=== PATIENT | female | born 1945 | race African-American/Black ===

== ENCOUNTER 2017-04-19 20:59 | Emergency (ER) | payer MEDICARE ==
[2017-04-19 21:47] LABS: BASOPHILS 0.3 % (0-2); EOSINOPHILS 4.2 % (0-7); HEMATOCRIT 40.1 % (36.0-48.0); HEMOGLOBIN 13.7 g/dL (12-16); IMMATURE GRANULOCYTES 0.2 % (0-5); LYMPHOCYTES 32.5 % (15-50); MCH 31.9 pg (26.0-34.0); MCHC 34.2 g/dL (31.0-37.0); MCV 93.5 fL (80.0-100.0); MONOCYTES 7.4 % (2-11); NEUTROPHILS 55.4 % (40-80); PLATELET COUNT 193 10x3/uL (130-400); RBC 4.29 10x6/uL (4.00-5.40); RDW 14.7 % (11.5-14.5); WBC 5.9 10x3/uL (4.8-10.8)
[2017-04-19 22:19] LABS: ALBUMIN 3.4 g/dL (3.4-5.0); ALKALINE PHOSPHATASE 48 U/L (46-116); ALT (SGPT) 23 U/L (10-68); BILIRUBIN - TOTAL 0.26 mg/dL (0.2-1.3); CALC OSMOLALITY 286 mosm/kg (275-300); CALCIUM 8.7 mg/dL (8.5-10.1); CHLORIDE - SERUM 105 mmol/L (98-107); CREATININE - SERUM 1.6 mg/dL (0.6-1.3); GLUCOSE 100 mg/dL (74-106); POTASSIUM - SERUM 3.6 mmol/L (3.5-5.1); PROTEIN - SERUM 7.1 g/dL (6.4-8.2); SODIUM 142 mmol/L (136-145); UREA NITROGEN 23 mg/dL (7-18); eGFR NON AFRICAN AMERICAN 33 mL/min (90-120)
[2017-04-19 22:27] LABS: CHOL - HDL RATIO 3.6 ratio (2.3-4.1); CHOLESTEROL, TOTAL 228 mg/dL (0-200); CKMB 0.3 U/L (0.0-3.6); CREATINE KINASE 110 UL (21-215); HDL CHOLESTEROL 63 mg/dL (32-96); LDL CHOLESTEROL 106 mg/dL (0-100); LDL-HDL RATIO 1.7 ratio (1.5-3.5); TRIGLYCERIDE 299 mg/dL (30-200)
[2017-04-19 22:35] LABS: TROPONIN-I < 0.017 ng/mL (0.000-0.060)
== END 2017-04-20 02:03 | disposition home or self-care (01) ==
LOC: D.ER 20:59
PROVIDERS: Emergency Medicine
DX: R07.9 Chest pain, unspecified (principal); R00.1 Bradycardia, unspecified; I10 Essential (primary) hypertension

== ENCOUNTER 2018-02-17 12:15 | Emergency (ER) | payer OTHER ==
[~2018-02-17] VITALS: Ht 165.1 cm; Wt 65.9 kg
[2018-02-17 12:17] VITALS: Ht 165.1 cm; Wt 65.9 kg
[2018-02-17] MEDS ORDERED: NORVASC5 MG PO (12:20)
[2018-02-17] MEDS ORDERED: HYZAAR 100-12.51 TAB PO (12:22)
[2018-02-17 13:24] LABS: APPEARANCE HAZY (CLEAR); BILIRUBIN NEGATIVE (NEGATIVE); COLOR YELLOW (YELLOW); GLUCOSE NEGATIVE (NEGATIVE); KETONE NEGATIVE (NEGATIVE); NITRITE POSITIVE (NEGATIVE); PROTEIN NEGATIVE (NEGATIVE); SPECIFIC GRAVITY 1.005 (1.005-1.020); UROBILINOGEN NORMAL (NORMAL)
[2018-02-17 13:26] LABS: BACTERIA MANY /hpf (NONE SEEN); RED CELLS - URINE 0-5 /hpf (0-5)
[2018-02-17 13:39] LABS: BASOPHILS 0.1 % (0-2); HEMATOCRIT 41.7 % (36.0-48.0); HEMOGLOBIN 14.2 g/dL (12-16); IMMATURE GRANULOCYTES 0.1 % (0-5); LYMPHOCYTES 17.7 % (15-50); MCH 32.1 pg (26.0-34.0); MCHC 34.1 g/dL (31.0-37.0); MCV 94.3 fL (80.0-100.0); NEUTROPHILS 73.1 % (40-80); PLATELET COUNT 221 10x3/uL (130-400); RBC 4.42 10x6/uL (4.00-5.40); RDW 14.3 % (11.5-14.5)
[2018-02-17 13:58] LABS: ALKALINE PHOSPHATASE 47 U/L (46-116); ALT (SGPT) 22 U/L (10-68); BILIRUBIN - TOTAL 0.41 mg/dL (0.2-1.3); CALC OSMOLALITY 280 mosm/kg (275-300); CALCIUM 9.1 mg/dL (8.5-10.1); CARBON DIOXIDE 31.4 mmol/L (21.0-32.0); CHLORIDE - SERUM 103 mmol/L (98-107); CREATININE - SERUM 1.1 mg/dL (0.6-1.3); GLUCOSE 92 mg/dL (74-106); POTASSIUM - SERUM 3.7 mmol/L (3.5-5.1); SODIUM 140 mmol/L (136-145); UREA NITROGEN 19 mg/dL (7-18); eGFR NON AFRICAN AMERICAN 51 mL/min (90-120)
[2018-02-17 14:10] LABS: CKMB 0.6 U/L (0.0-3.6); CREATINE KINASE 99 UL (21-215)
[2018-02-17 14:11] LABS: TROPONIN-I < 0.017 ng/mL (0.000-0.060)
[2018-02-17] MEDS ORDERED: MACROBID100 MG PO (14:44)
[2018-02-17 15:28] VITALS: BP 112/54
== END 2018-02-17 15:29 | disposition home or self-care (01) ==
LOC: D.ER 12:15
PROVIDERS: Emergency Medicine
DX: N39.0 Urinary tract infection, site not specified (principal); R51 Headache; I10 Essential (primary) hypertension

== ENCOUNTER → 2018-12-06 11:24 | Outpatient (CLI) | payer OTHER ==
[2018-02-17 12:17] VITALS: BMI 24.1
[~2018-12-06 11:24] MED LIST: HYZAAR 100-12.51 TAB PO; MACROBID100 MG PO; NORVASC5 MG PO
== END | disposition home or self-care (01) ==
LOC: D.US 11:24
PROVIDERS: ATTEND Family Medicine
DX: M71.22 Synovial cyst of popliteal space [Baker], left knee (principal)

== ENCOUNTER → 2019-06-08 09:00 | Outpatient (CLI) | payer OTHER ==
[2018-02-17 12:17] VITALS: BMI 24.1
== END | disposition home or self-care (01) ==
LOC: D.MAMMO 09:00
PROVIDERS: ATTEND Family Medicine
DX: Z12.31 Encounter for screening mammogram for malignant neoplasm of breast (principal)

== ENCOUNTER 2019-07-11 09:00 | Outpatient (CLI) | payer OTHER ==
[2018-02-17 12:17] VITALS: BMI 24.1
== END 2019-07-11 10:00 | disposition home or self-care (01) ==
LOC: D.MAMMO 09:00
PROVIDERS: ATTEND Family Medicine
DX: R92.8 Other abnormal and inconclusive findings on diagnostic imaging of breast (principal)